=== PATIENT | male | born 1960 | race Hispanic/Latino ===

== ENCOUNTER → 2017-07-08 | Outpatient (REF) | payer MEDICAID, OTHER ==
[2017-07-08 19:13] LABS: ALBUMIN/GLOBULIN RATIO 1.21 (1.00-1.93); ALKALINE PHOSPHATASE 105 U/L (45-117); ALT/SGPT 32 U/L (12-78); ANION GAP 4 MEQ/L (8-16); AST/SGOT 24 U/L (15-37); BILIRUBIN,TOTAL 0.8 MG/DL (0.2-1.0); BLOOD UREA NITROGEN 18 MG/DL (7-18); CALCIUM LEVEL 8.4 MG/DL (8.5-10.1); CARBON DIOXIDE LEVEL 35 MEQ/L (21-32); CHLORIDE LEVEL 102 MEQ/L (98-107); CHOLESTEROL LEVEL 193 MG/DL (<200); CREATININE FOR GFR 1.02 MG/DL (0.70-1.30); GLOMERULAR FILTRATION RATE > 60.0 (>56); GLUCOSE, FASTING 89 MG/DL (70-105); POTASSIUM SERUM 4.1 MEQ/L (3.5-5.1); SODIUM LEVEL 141 MEQ/L (136-145); TOTAL PROTEIN 7.3 GM/DL (6.4-8.2); TRIGLYCERIDES LEVEL 123 MG/DL (<150)
[2017-07-08 19:29] LABS: MEAN CORPUSCULAR HEMOGLOBIN 28.6 pg (27.0-33.0); MEAN CORPUSCULAR HGB CONC 32.4 g/dl (32.0-36.5); MEAN CORPUSCULAR VOLUME 88.3 fl (80.0-96.0); RED CELL DISTRIBUTION WIDTH 14.5 % (11.5-14.5); WHITE BLOOD COUNT 11.1 K/mm3 (4.0-10.0)
[2017-07-08 21:07] LABS: EOSINOPHILS 1 % (0-5)
== END ==
LOC: M SFHCLERA 12:24
PROVIDERS: ATTEND Family Medicine
DX: I10 Essential (primary) hypertension (principal); R06.00 Dyspnea, unspecified; E66.01 Morbid (severe) obesity due to excess calories; M79.89 Other specified soft tissue disorders; M87.89 Other osteonecrosis, multiple sites; M54.5 Low back pain

== ENCOUNTER → 2017-07-08 | Outpatient (CLI) | payer MEDICAID, OTHER ==
--- NOTE | 2017-07-08 13:43 | REP ---
Lumbar spine seven views: There is disc space narrowing and osteophytic growth L4-5 and L5 S1. There is osteophytic growth without disc space narrowing at the remainder of the lumbar disc spaces. Findings are compatible with multilevel degenerative disc disease. Vertebral body heights and alignment are normal. There is no spondylolysis. There is no spondylolisthesis. The pedicles, facets and sacroiliac articulations are unremarkable. Impression: Multilevel degenerative disc disease. Signed by Manohar Kunz MD 07/08/2017 01:35 P
--- NOTE | 2017-07-08 13:44 | REP ---
Left hip two views: There is joint space narrowing superiorly with eburnation and slight osteophytic growth compatible with osteoarthritis. There is no femoral head deformity. No fracture or dislocation. There are no calcifications. Impression: Osteoarthritis. No fracture. Signed by Manohar Kunz MD 07/08/2017 01:36 P
== END ==
LOC: M LRY 12:41
PROVIDERS: ATTEND Family Medicine
DX: M25.552 Pain in left hip (principal)

== ENCOUNTER → 2017-07-17 | Outpatient (REF) | payer OTHER, MEDICAID | LOC: M SFHCLERA 11:52 | PROVIDERS: ATTEND Family Medicine | DX: E83.51 Hypocalcemia (principal); I10 Essential (primary) hypertension ==

== ENCOUNTER → 2017-08-01 | Outpatient (RCR) | payer OTHER | LOC: M PT 07-22 11:56 | PROVIDERS: ATTEND Family Medicine | DX: Z51.89 Encounter for other specified aftercare (principal); M54.5 Low back pain ==

== ENCOUNTER → 2017-08-13 | Outpatient (REF) | payer OTHER, MEDICAID ==
[2017-08-13 17:56] LABS: IONIZED CALCIUM 4.9 MG/DL (4.5-5.3)
[2017-08-13 19:20] LABS: ANION GAP 9 MEQ/L (8-16); BLOOD UREA NITROGEN 21 MG/DL (7-18); CALCIUM LEVEL 8.8 MG/DL (8.5-10.1); CARBON DIOXIDE LEVEL 34 MEQ/L (21-32); CHLORIDE LEVEL 101 MEQ/L (98-107); CREATININE FOR GFR 0.99 MG/DL (0.70-1.30); GLOMERULAR FILTRATION RATE > 60.0 (>56); GLUCOSE, FASTING 89 MG/DL (70-105); POTASSIUM SERUM 4.1 MEQ/L (3.5-5.1); SODIUM LEVEL 144 MEQ/L (136-145)
== END ==
LOC: M SFHCLERA 14:16
PROVIDERS: ATTEND Family Medicine
DX: E83.51 Hypocalcemia (principal); E78.5 Hyperlipidemia, unspecified

== ENCOUNTER 2017-08-26 09:44 | Outpatient (RCR) | payer OTHER | END 2017-08-31 | LOC: M PT 09:44 | PROVIDERS: ATTEND Family Medicine | DX: Z51.89 Encounter for other specified aftercare (principal); M54.5 Low back pain ==

== ENCOUNTER → 2017-09-09 | Outpatient (CLI) | payer OTHER, MEDICAID ==
--- NOTE | 2017-09-17 19:16 | SLEEPHOME ---
DATE OF PROCEDURE: 09/09/2017 ORDERED BY: Sheela Mayo Diagnostic home sleep testing was performed due to concern for the obstructive sleep apnea syndrome in this patient with a history of excessive somnolence and nonrestorative sleep and comorbidities of hypertension. For testing, a NOX-T3 respiratory monitoring device was used. Continuous record was made of pulse, oxygen saturation, air flow, chest and abdominal strain and body position. 10 hours and 59 minutes of data were reviewed. There were 8 hours and 37 minutes marked as time in bed. During the interval marked time in bed, there were 735 respiratory events identified of 10 seconds in duration or greater for a respiratory event index of 85.3. The events were primarily central in nature, 383 central events to 332 obstructive. Baseline pulse rate was 63 beats per minute. Pulse rate ranged 37 to 92. Baseline saturation 95%. Lowest oxygen saturation 77%. Testing was performed in both the supine and nonsupine positions. IMPRESSION: Abnormal home sleep testing with repetitive respiratory events and oxygen desaturations to 77% with a respiratory event index of 85.3 is consistent with the obstructive sleep apnea syndrome. The presence of greater than 50% central events suggests complex disease with significant oxygen desaturations. RECOMMENDATION: Given the complex nature of this patient's disorder, referral for in laboratory pressure titration is recommended. In the interim, alcohol and sedative avoidance should be practiced and caution exercised during the operation of motor vehicles. Copy To: Dr. Williamson
== END ==
LOC: M SLEEP HO 10:27
PROVIDERS: ATTEND Nurse Practitioner Adult Health
DX: G47.30 Sleep apnea, unspecified (principal)

== ENCOUNTER → 2017-09-17 | Outpatient (REF) | payer OTHER, MEDICAID | LOC: M SFHCLERA 15:29 | PROVIDERS: ATTEND Family Medicine | DX: R80.9 Proteinuria, unspecified (principal) ==

== ENCOUNTER → 2017-09-27 | Outpatient (CLI) | payer OTHER ==
--- NOTE | 2017-09-27 23:54 | ECHO ---
DATE OF PROCEDURE: 09/27/2017 REFERRING PHYSICIAN: Dr. Manohar Williamson INDICATION: Dyspnea. HEIGHT: 76 inches WEIGHT: 394 pounds 2D MEASUREMENTS: Ventricular septum: 1.70 cm Posterior wall: 1.39 cm Left ventricle diastole: 7.2 cm Left atrium: 4.2 cm Aortic root: 3.2 cm LVOT: 2.5 cm Inferior vena cava: 2.2 cm with more than 50% respiration variation. DOPPLER MEASUREMENTS: Aortic valve velocity: 149 cm/s LVOT velocity: 69.2 cm/s LVOT VTI: 15.4 cm Mitral E velocity: 69.6 cm/s Mitral A velocity: 83.4 cm/s Estimated pulmonary artery systolic pressure: 31 mmHg by pulmonary acceleration time method. MITRAL ANNULAR TISSUE DOPPLER: E prime septal: 3.7 cm/s E prime lateral: 3.3 cm/s DESCRIPTION: Rhythm was sinus. This was a moderately technically difficult echocardiogram. No pericardial effusion. This was a 2D, M-mode, color flow Doppler and pulse wave Doppler examination and included mitral annular tissue Doppler. CONCLUSIONS: 1. Severely dilated left ventricle with mixed eccentric/concentric left ventricle hypertrophy. Severe reduction in overall LV systolic function. Moderate global LV hypokinesis. Left ventricular ejection fraction (LVEF) 30% by visual estimate. Grade 1 LV diastolic dysfunction. Suggestive of elevated mean left atrial pressure. 2. Normal right ventricle size and systolic function. Mild right ventricle hypertrophy. 3. Suggestive of central venous pressure in the range of 5-10 mmHg at the time of the study. 4. Suggestive of very mild elevation of pulmonary artery systolic pressure.
== END ==
LOC: M CARPUL 08:17
PROVIDERS: ATTEND Family Medicine
DX: R06.00 Dyspnea, unspecified (principal); R79.89 Other specified abnormal findings of blood chemistry

== ENCOUNTER → 2017-10-16 | Outpatient (CLI) | payer OTHER ==
--- NOTE | 2017-10-18 23:12 | SLEEPCENT ---
DATE OF PROCEDURE: 10/16/2017 REFERRING PHYSICIAN: Sheela Mayo Nocturnal polysomnography was performed for the titration of pressure therapy in this patient with obstructive sleep apnea syndrome, based on clinical evaluation and supported by home testing revealing a respiratory event index of 85.3. For testing, the patient was fit with a [employer]worx Simplus full face mask of medium size. 4 cm of water pressure were applied to the circuit and the lights were extinguished. 7 hours and 10 minutes of data were reviewed. There were 387 minutes of sleep identified. Sleep latency was short at 4.5 minutes. Rapid eye movement (REM) latency was short at 36 minutes. Sleep architecture was good with six REM periods appreciated. Overall sleep efficiency was 91.8%. The patient's electrocardiogram revealed a sinus rhythm with premature ventricular contractions (PVCs). Average heart rate 58 beats per minute. EEG showed normal waveforms for awake and sleep. Persistence of respiratory events prompted an increase in CPAP pressure. Despite optimal mask fit and minimal air leak, the patient required a change to a bilevel device. Best sleep was seen on an inspiratory pressure of 22 over an expiratory pressure of 18 with which the patient slept through REM in the supine posture without respiratory event or oxygen desaturation. IMPRESSION: Obstructive sleep apnea syndrome (G47.33). RECOMMENDATION: Nightly use of pressure therapy using a bilevel device with inspiratory pressure of 22, expiratory pressure of 18.
== END ==
LOC: M SLEEP 20:01
PROVIDERS: ATTEND Nurse Practitioner Adult Health
DX: G47.33 Obstructive sleep apnea (adult) (pediatric) (principal)

== ENCOUNTER → 2017-11-13 | Outpatient (REF) | payer OTHER, MEDICAID ==
[2017-11-13 16:51] LABS: CALCIUM LEVEL 8.6 MG/DL (8.5-10.1); CREATININE FOR GFR 1.45 MG/DL (0.70-1.30); GLOMERULAR FILTRATION RATE 53.2 (>56); POTASSIUM SERUM 3.6 MEQ/L (3.5-5.1)
== END ==
LOC: M SFHCLERA 13:51
PROVIDERS: ATTEND Family Medicine
DX: I50.22 Chronic systolic (congestive) heart failure (principal)

== ENCOUNTER → 2018-01-02 | Outpatient (REF) | payer OTHER, MEDICAID ==
[2018-01-02 17:35] LABS: ANION GAP 6 MEQ/L (8-16); BLOOD UREA NITROGEN 33 MG/DL (7-18); CALCIUM LEVEL 8.8 MG/DL (8.5-10.1); CARBON DIOXIDE LEVEL 29 MEQ/L (21-32); CHLORIDE LEVEL 107 MEQ/L (98-107); CREATININE FOR GFR 1.54 MG/DL (0.70-1.30); GLOMERULAR FILTRATION RATE 49.6 (>56); GLUCOSE, FASTING 94 MG/DL (70-100); POTASSIUM SERUM 5.1 MEQ/L (3.5-5.1); SODIUM LEVEL 142 MEQ/L (136-145)
== END ==
LOC: M SFHCLERA 13:56
DX: I10 Essential (primary) hypertension (principal)

== ENCOUNTER → 2018-03-20 | Outpatient (REF) | payer OTHER, MEDICAID ==
[2018-03-20 16:34] LABS: HEMATOCRIT 36.6 % (42.0-52.0); HEMOGLOBIN 11.8 g/dl (13.5-17.5); MEAN CORPUSCULAR HEMOGLOBIN 29.1 pg (27.0-33.0); MEAN CORPUSCULAR HGB CONC 32.2 g/dl (32.0-36.5); MEAN CORPUSCULAR VOLUME 90.1 fl (80.0-96.0); PLATELET COUNT, AUTOMATED 176 10^3/uL (150-450); RED BLOOD COUNT 4.06 10^6/uL (4.30-6.10); RED CELL DISTRIBUTION WIDTH 14.4 % (11.5-14.5); WHITE BLOOD COUNT 7.3 10^3/uL (4.0-10.0)
[2018-03-20 17:41] LABS: ALBUMIN 4.1 GM/DL (3.2-5.2); ALBUMIN/GLOBULIN RATIO 1.28 (1.00-1.93); ALKALINE PHOSPHATASE 100 U/L (45-117); ALT/SGPT 24 U/L (12-78); ANION GAP 4 MEQ/L (8-16); AST/SGOT 14 U/L (7-37); BILIRUBIN,TOTAL 0.4 MG/DL (0.2-1.0); BLOOD UREA NITROGEN 34 MG/DL (7-18); CALCIUM LEVEL 9.1 MG/DL (8.5-10.1); CARBON DIOXIDE LEVEL 31 MEQ/L (21-32); CHLORIDE LEVEL 108 MEQ/L (98-107); CREATININE FOR GFR 1.62 MG/DL (0.70-1.30); GLOMERULAR FILTRATION RATE 46.7 (>56); GLUCOSE, FASTING 96 MG/DL (70-100); SODIUM LEVEL 143 MEQ/L (136-145); TOTAL PROTEIN 7.3 GM/DL (6.4-8.2)
[2018-03-20 17:49] LABS: POTASSIUM SERUM 5.4 MEQ/L (3.5-5.1)
[2018-03-22 03:48] LABS: ESTIMATED AVERAGE GLUCOSE 120 MG/DL (60-110); HEMOGLOBIN A1c 5.8 %
== END ==
LOC: M SFHCLERA 11:17
DX: I10 Essential (primary) hypertension (principal); R73.01 Impaired fasting glucose; R80.9 Proteinuria, unspecified

== ENCOUNTER → 2018-03-28 | Outpatient (REF) | payer OTHER, MEDICAID ==
[2018-03-28 16:32] LABS: HEMATOCRIT 37.9 % (42.0-52.0); HEMOGLOBIN 12.2 g/dl (13.5-17.5); MEAN CORPUSCULAR HEMOGLOBIN 28.8 pg (27.0-33.0); MEAN CORPUSCULAR HGB CONC 32.2 g/dl (32.0-36.5); MEAN CORPUSCULAR VOLUME 89.4 fl (80.0-96.0); PLATELET COUNT, AUTOMATED 176 10^3/uL (150-450); RED BLOOD COUNT 4.24 10^6/uL (4.30-6.10); RED CELL DISTRIBUTION WIDTH 14.1 % (11.5-14.5); WHITE BLOOD COUNT 7.7 10^3/uL (4.0-10.0)
[2018-03-28 16:46] LABS: ALBUMIN 3.7 GM/DL (3.2-5.2); ALBUMIN/GLOBULIN RATIO 1.06 (1.00-1.93); ALKALINE PHOSPHATASE 108 U/L (45-117); ALT/SGPT 25 U/L (12-78); ANION GAP 6 MEQ/L (8-16); AST/SGOT 16 U/L (7-37); BILIRUBIN,TOTAL 0.2 MG/DL (0.2-1.0); BLOOD UREA NITROGEN 25 MG/DL (7-18); CALCIUM LEVEL 8.3 MG/DL (8.5-10.1); CARBON DIOXIDE LEVEL 30 MEQ/L (21-32); CHLORIDE LEVEL 108 MEQ/L (98-107); CREATININE FOR GFR 1.36 MG/DL (0.70-1.30); GLOMERULAR FILTRATION RATE 57.1 (>56); GLUCOSE, FASTING 93 MG/DL (70-100); POTASSIUM SERUM 4.8 MEQ/L (3.5-5.1); SODIUM LEVEL 144 MEQ/L (136-145); TOTAL PROTEIN 7.2 GM/DL (6.4-8.2)
[2018-03-28 16:48] LABS: ESTIMATED AVERAGE GLUCOSE 117 MG/DL (60-110); HEMOGLOBIN A1c 5.7 %
[2018-03-28 17:01] LABS: MALB URINE SIEMENS 13.5 MG/L; MAU/CREAT RATIO 9.2 MCG/MG (0.0-30.0)
== END ==
LOC: M SFHCLERA 10:27
DX: I10 Essential (primary) hypertension (principal); R73.01 Impaired fasting glucose; R80.9 Proteinuria, unspecified
CPT/HCPCS: 80053

== ENCOUNTER → 2018-04-19 | Outpatient (REF) | payer OTHER, MEDICAID ==
[2018-04-19 19:07] LABS: ANION GAP 4 MEQ/L (8-16); BLOOD UREA NITROGEN 28 MG/DL (7-18); CALCIUM LEVEL 8.5 MG/DL (8.5-10.1); CARBON DIOXIDE LEVEL 31 MEQ/L (21-32); CHLORIDE LEVEL 106 MEQ/L (98-107); CREATININE FOR GFR 1.51 MG/DL (0.70-1.30); FERRITIN 305 NG/ML (26-388); GLOMERULAR FILTRATION RATE 50.6 (>56); GLUCOSE, FASTING 94 MG/DL (70-100); IRON (FE) 67 UG/DL (65-175); PERCENT SATURATION 23.1 % (19.7-50.0); POTASSIUM SERUM 4.9 MEQ/L (3.5-5.1); SODIUM LEVEL 141 MEQ/L (136-145); TOTAL IRON BINDING CAPACITY 290 UG/DL (250-450)
== END ==
LOC: M SFHCLERA 09:20
DX: D64.9 Anemia, unspecified (principal)
CPT/HCPCS: 83550

== ENCOUNTER → 2018-04-21 | Outpatient (REF) | payer OTHER, MEDICAID ==
[2018-04-21 16:42] LABS: ANION GAP 6 MEQ/L (8-16); BLOOD UREA NITROGEN 28 MG/DL (7-18); CALCIUM LEVEL 8.9 MG/DL (8.5-10.1); CARBON DIOXIDE LEVEL 31 MEQ/L (21-32); CHLORIDE LEVEL 105 MEQ/L (98-107); CREATININE FOR GFR 1.46 MG/DL (0.70-1.30); GLOMERULAR FILTRATION RATE 52.6 (>56); GLUCOSE, FASTING 97 MG/DL (70-100); POTASSIUM SERUM 4.9 MEQ/L (3.5-5.1); SODIUM LEVEL 142 MEQ/L (136-145)
== END ==
LOC: M SFHCLERA 13:35
DX: I50.22 Chronic systolic (congestive) heart failure (principal)
CPT/HCPCS: 80048

== ENCOUNTER → 2018-07-02 | Outpatient (REF) | payer OTHER, MEDICAID ==
[2018-07-02 17:02] LABS: BASO % 0.4 % (0.0-1.0); EOS # 0.1 10^3/uL (0.0-0.50); EOS % 1.6 % (0.0-3.0); HEMATOCRIT 39.3 % (42.0-52.0); HEMOGLOBIN 12.6 g/dl (13.5-17.5); IMMATURE GRANULOCYTE % 0.4 % (0-3.0); LYMPH # 2.2 10^3/uL (1.5-4.5); LYMPH % 29.3 % (24.0-44.0); MEAN CORPUSCULAR HEMOGLOBIN 28.8 pg (27.0-33.0); MEAN CORPUSCULAR HGB CONC 32.1 g/dl (32.0-36.5); MEAN CORPUSCULAR VOLUME 89.9 fl (80.0-96.0); MONO # 0.6 10^3/uL (0.0-0.8); NEUTROPHILS # 4.4 10^3/uL (1.8-7.7); NEUTROPHILS % 60.3 % (36.0-66.0); PLATELET COUNT, AUTOMATED 182 10^3/uL (150-450); RED BLOOD COUNT 4.37 10^6/uL (4.30-6.10); RED CELL DISTRIBUTION WIDTH 13.4 % (11.5-14.5); WHITE BLOOD COUNT 7.4 10^3/uL (4.0-10.0)
[2018-07-02 17:05] LABS: ANION GAP 8 MEQ/L (8-16); BLOOD UREA NITROGEN 22 MG/DL (7-18); CALCIUM LEVEL 8.7 MG/DL (8.5-10.1); CARBON DIOXIDE LEVEL 29 MEQ/L (21-32); CHLORIDE LEVEL 106 MEQ/L (98-107); CREATININE FOR GFR 1.59 MG/DL (0.70-1.30); GLOMERULAR FILTRATION RATE 47.7 (>56); GLUCOSE, FASTING 86 MG/DL (70-100); POTASSIUM SERUM 4.6 MEQ/L (3.5-5.1); SODIUM LEVEL 143 MEQ/L (136-145)
== END ==
LOC: M SFHCLERA 14:17
DX: I11.0 Hypertensive heart disease with heart failure (principal); I50.9 Heart failure, unspecified

== ENCOUNTER 2018-09-04 08:08 | Day surgery (SDC) | payer OTHER ==
[2018-09-04] MEDS ORDERED: PROPOFOL 200 MG/20 ML VIAL As Ordered ×2 (08:28)
[2018-09-04] MEDS ORDERED: LIDOCAINE 2% INJ 100 MG/5 ML SDV (FOR ANES.) As Ordered (08:30)
[2018-09-04] MEDS: NS 1,000 ML IV (08:54)
[2018-09-04] MEDS ORDERED: CARVedilol 6.25 MG TAB As Ordered (09:06)
[2018-09-04] MEDS: CARVedilol 6.25 MG TAB PO (09:10)
== END 2018-09-04 10:22 | disposition home or self-care (01) ==
LOC: M OPP 08:08
DX: Z12.11 Encounter for screening for malignant neoplasm of colon (principal); D12.5 Benign neoplasm of sigmoid colon; K64.8 Other hemorrhoids; I50.9 Heart failure, unspecified; I11.0 Hypertensive heart disease with heart failure; E78.5 Hyperlipidemia, unspecified; D64.9 Anemia, unspecified; M19.90 Unspecified osteoarthritis, unspecified site; G47.30 Sleep apnea, unspecified; E66.9 Obesity, unspecified; R06.83 Snoring; I42.9 Cardiomyopathy, unspecified; Z91.011 Allergy to milk products; Z79.82 Long term (current) use of aspirin; Z79.899 Other long term (current) drug therapy
CPT/HCPCS: 45385

== ENCOUNTER → 2018-10-14 | Outpatient (REF) | payer OTHER, MEDICAID ==
[2018-10-14 21:21] LABS: ANION GAP 5 MEQ/L (8-16); BLOOD UREA NITROGEN 27 MG/DL (7-18); CALCIUM LEVEL 8.7 MG/DL (8.5-10.1); CARBON DIOXIDE LEVEL 30 MEQ/L (21-32); CHLORIDE LEVEL 108 MEQ/L (98-107); CREATININE FOR GFR 1.51 MG/DL (0.70-1.30); GLOMERULAR FILTRATION RATE 50.6 (>56); GLUCOSE, FASTING 90 MG/DL (70-100); POTASSIUM SERUM 5.4 MEQ/L (3.5-5.1); SODIUM LEVEL 143 MEQ/L (136-145)
== END ==
LOC: M SFHCLERA 13:49
DX: I11.0 Hypertensive heart disease with heart failure (principal)
CPT/HCPCS: 80048

== ENCOUNTER → 2019-01-29 | Outpatient (REF) | payer OTHER, MEDICAID ==
[~2019-01-29] MED LIST: AMLO5TAB6 PO; ASPI1TAB PO; ATOR40TA75 PO; CARV25TA PO; FISH7.5C PO; FURO40TA2 PO; GARC500T PO; LISI40TA PO; SPIR-10 PO; TYLE500T78 PO
[2019-01-29 16:49] LABS: CALCIUM LEVEL 8.8 MG/DL (8.8-10.2); CREATININE FOR GFR 1.35 MG/DL (0.70-1.30); GLOMERULAR FILTRATION RATE 57.4 (>49); POTASSIUM SERUM 4.6 MEQ/L (3.5-5.1)
== END ==
LOC: M SFHCLERA 14:03
PROVIDERS: ATTEND Family Medicine
DX: I11.0 Hypertensive heart disease with heart failure (principal)

== ENCOUNTER → 2019-04-28 | Outpatient (REF) | payer OTHER, MEDICAID ==
[~2019-04-28] MED LIST changes: -ASPI1TAB PO; +ASPI81TA26 PO
[2019-04-28 18:09] LABS: CALCIUM LEVEL 9.3 MG/DL (8.8-10.2); CHOLESTEROL RISK RATIO 6.571 (<5); CREATININE FOR GFR 1.49 MG/DL (0.70-1.30); GLOMERULAR FILTRATION RATE 51.2 (>49); POTASSIUM SERUM 4.8 MEQ/L (3.5-5.1)
== END ==
LOC: M SFHCLERA 13:38
PROVIDERS: ATTEND Family Medicine
DX: E78.5 Hyperlipidemia, unspecified (principal); I11.0 Hypertensive heart disease with heart failure

== ENCOUNTER → 2019-08-04 | Outpatient (REF) | payer OTHER, MEDICAID ==
[2019-08-04 17:21] LABS: CREATININE FOR GFR 1.39 MG/DL (0.70-1.30); GLOMERULAR FILTRATION RATE 55.5 (>49); POTASSIUM SERUM 4.4 MEQ/L (3.5-5.1)
== END ==
LOC: M SFHCLERA 13:43
PROVIDERS: ATTEND Family Medicine
DX: I11.0 Hypertensive heart disease with heart failure (principal)

== ENCOUNTER → 2019-11-02 | Outpatient (REF) | payer OTHER, MEDICAID ==
[2019-11-02 20:21] LABS: BASO % 0.4 % (0.0-1.0); EOS # 0.1 10^3/uL (0.0-0.5); EOS % 1.6 % (0.0-3.0); HEMATOCRIT 44.3 % (42.0-52.0); HEMOGLOBIN 13.4 g/dl (13.5-17.5); LYMPH # 1.6 10^3/uL (1.5-5.0); LYMPH % 22.3 % (24.0-44.0); MEAN CORPUSCULAR HEMOGLOBIN 28.3 pg (27.0-33.0); MEAN CORPUSCULAR HGB CONC 30.2 g/dl (32.0-36.5); MEAN CORPUSCULAR VOLUME 93.7 fl (80.0-96.0); MONO # 0.7 10^3/uL (0.0-0.8); MONO % 9.2 % (0.0-5.0); NEUTROPHILS # 4.7 10^3/uL (1.5-8.5); NEUTROPHILS % 66.1 % (36.0-66.0); PLATELET COUNT, AUTOMATED 188 10^3/uL (150-450); RED BLOOD COUNT 4.73 10^6/uL (4.30-6.10)
[2019-11-02 20:35] LABS: CALCIUM LEVEL 8.7 MG/DL (8.8-10.2); CREATININE FOR GFR 1.64 MG/DL (0.70-1.30); GLOMERULAR FILTRATION RATE 45.8 (>49); POTASSIUM SERUM 4.9 MEQ/L (3.5-5.1); THYROID STIMULATING HORMONE 2.73 uIU/ML (0.358-3.740)
[2019-11-02 20:42] LABS: HEMOGLOBIN A1c 6.2 %
== END ==
LOC: M SFHCLERA 14:53
PROVIDERS: ATTEND Family Medicine
DX: N18.3 Chronic kidney disease, stage 3 (moderate) (principal); E66.01 Morbid (severe) obesity due to excess calories

== ENCOUNTER → 2020-01-05 | Outpatient (REF) | payer OTHER, MEDICAID ==
[2020-01-05 17:14] LABS: CALCIUM LEVEL 8.6 MG/DL (8.8-10.2); CREATININE FOR GFR 1.38 MG/DL (0.70-1.30); POTASSIUM SERUM 4.4 MEQ/L (3.5-5.1)
== END ==
LOC: M SFHCLERA 13:59
PROVIDERS: ATTEND Family Medicine
DX: N18.3 Chronic kidney disease, stage 3 (moderate) (principal)

== ENCOUNTER → 2020-07-14 | Outpatient (REF) | payer OTHER, MEDICAID ==
[~2020-07-14] MED LIST changes: +AMLO1TAB24 PO; -AMLO5TAB6 PO
[2020-09-01 22:01] LABS: HEMATOCRIT 42.7 % (42.0-52.0); HEMOGLOBIN 13.9 g/dl (13.5-17.5); MEAN CORPUSCULAR HEMOGLOBIN 28.7 pg (27.0-33.0); MEAN CORPUSCULAR HGB CONC 32.6 g/dl (32.0-36.5); PLATELET COUNT, AUTOMATED 158 10^3/uL (150-450); RED BLOOD COUNT 4.85 10^6/uL (4.30-6.10); WHITE BLOOD COUNT 6.9 10^3/uL (4.0-10.0)
[2020-09-11 23:32] LABS: BILIRUBIN,TOTAL 0.4 MG/DL (0.2-1.0); CALCIUM LEVEL 8.8 MG/DL (8.8-10.2); CHOLESTEROL RISK RATIO 5.736 (<5); CREATININE FOR GFR 1.3 MG/DL (0.70-1.30); GLOMERULAR FILTRATION RATE 59.7 (>49); POTASSIUM SERUM 4.4 MEQ/L (3.5-5.1); TOTAL PROTEIN 7.5 GM/DL (6.4-8.2)
== END ==
LOC: M LRY 13:15
PROVIDERS: ATTEND Nurse Practitioner Family
DX: I42.0 Dilated cardiomyopathy (principal); I50.22 Chronic systolic (congestive) heart failure; E78.5 Hyperlipidemia, unspecified

== ENCOUNTER → 2022-03-02 | Outpatient (CLI) | payer MEDICAID, OTHER ==
[~2022-03-02] MED LIST changes: -LISI40TA PO; +LISI40TA4 PO
[2022-03-02 10:34] LABS: HEMATOCRIT 37.9 % (42.0-52.0); HEMOGLOBIN 12.2 g/dl (13.5-17.5); MEAN CORPUSCULAR HEMOGLOBIN 28.8 pg (27.0-33.0); MEAN CORPUSCULAR HGB CONC 32.2 g/dl (32.0-36.5); MEAN CORPUSCULAR VOLUME 89.4 fl (80.0-96.0); PLATELET COUNT, AUTOMATED 177 10^3/uL (150-450); RED BLOOD COUNT 4.24 10^6/uL (4.30-6.10); WHITE BLOOD COUNT 8.4 10^3/uL (4.0-10.0)
== END ==
LOC: M LAB 09:23
PROVIDERS: ATTEND Nurse Practitioner Family
DX: I42.0 Dilated cardiomyopathy (principal); E78.5 Hyperlipidemia, unspecified

== ENCOUNTER → 2022-03-02 | Outpatient (CLI) | payer OTHER, MEDICAID ==
[2022-03-02 11:12] LABS: ALBUMIN 3.4 GM/DL (3.2-5.2); ALT/SGPT 36 U/L (12-78); BILIRUBIN,TOTAL 0.4 MG/DL (0.2-1.0); BLOOD UREA NITROGEN 26 MG/DL (7-18); CALCIUM LEVEL 7.7 MG/DL (8.8-10.2); CARBON DIOXIDE LEVEL 29 MEQ/L (21-32); CHLORIDE LEVEL 109 MEQ/L (98-107); CHOLESTEROL LEVEL 106 MG/DL (<200); CHOLESTEROL RISK RATIO 3.028 (<5); CREATININE FOR GFR 1.22 MG/DL (0.70-1.30); GLOMERULAR FILTRATION RATE > 60.0 (>49); GLUCOSE, FASTING 101 MG/DL (70-100); HDL CHOLESTEROL 35 MG/DL (>40); LDL CHOLESTEROL 48 MG/DL (<100); NON-HDL-C 71 MG/DL; POTASSIUM SERUM 3.6 MEQ/L (3.5-5.1); SODIUM LEVEL 140 MEQ/L (136-145); TOTAL PROTEIN 6.9 GM/DL (6.4-8.2); TRIGLYCERIDES LEVEL 115 MG/DL (<150)
== END ==
LOC: M LAB 09:21
PROVIDERS: ATTEND Family Medicine
DX: E78.5 Hyperlipidemia, unspecified (principal)

== ENCOUNTER → 2022-12-19 | Outpatient (CLI) | payer OTHER, MEDICAID ==
[~2022-12-19] MED LIST changes: +FISH10005 PO; -FISH7.5C PO
== END ==
LOC: M PAIN 13:00
PROVIDERS: ATTEND Anesthesiology
DX: M25.552 Pain in left hip (principal); G89.29 Other chronic pain; M53.3 Sacrococcygeal disorders, not elsewhere classified; I10 Essential (primary) hypertension; G47.33 Obstructive sleep apnea (adult) (pediatric); E66.01 Morbid (severe) obesity due to excess calories; Z68.42 Body mass index [BMI] 45.0-49.9, adult; Z79.899 Other long term (current) drug therapy

== ENCOUNTER → 2023-01-03 | Outpatient (CLI) | payer OTHER | LOC: M PLARAD 14:25 | PROVIDERS: ATTEND Anesthesiology | DX: M51.36 Other intervertebral disc degeneration, lumbar region (principal); M16.12 Unilateral primary osteoarthritis, left hip ==

== ENCOUNTER → 2023-01-09 | Outpatient (CLI) | payer OTHER | LOC: M SOG 08:00 | PROVIDERS: ATTEND Orthopaedic Surgery | DX: M25.552 Pain in left hip (principal); Z53.9 Procedure and treatment not carried out, unspecified reason ==

== ENCOUNTER → 2023-01-17 | Outpatient (CLI) | payer OTHER | LOC: M SOG 08:20 | PROVIDERS: ATTEND Orthopaedic Surgery | DX: M25.552 Pain in left hip (principal) ==

== ENCOUNTER → 2023-02-14 | Outpatient (CLI) | payer OTHER | LOC: M SOG 09:23 | PROVIDERS: ATTEND Orthopaedic Surgery | DX: M47.816 Spondylosis without myelopathy or radiculopathy, lumbar region (principal); Z53.9 Procedure and treatment not carried out, unspecified reason ==